=== PATIENT | female | born 1955 | race Caucasian/White ===

== ENCOUNTER → 2017-10-26 | Outpatient (CLI) | payer OTHER ==
[~2017-10-26] MED LIST: ACET325 PO; ALBU2.5V5; ALBU90OI6 INH; ALBU90OI61 INH; AMIT25 PO; AMIT50 PO; AMLO5 PO; ARIP10 PO; ASPI81CH PO; ATOR10 PO; ATOR20 PO; ATOR40TA PO; ATOR80 PO; Aspirin EC81 MG PO; BENADRYL25 MG PO; Bactrim Ds Tab1 EACH PO; CEPH500 PO; CILO50 PO; CLOB.05TC TP; CLON.5 PO; CLOP75 PO; Cipro500 MG PO; DELTASONE20 MG PO; DULO30 PO; Desyrel50 MG PO; FLUSAL2505 IH; FLUT1DIS2; Flagyl500 MG PO; GABA100 PO; GABA300 PO; HYDCHL25 PO; HYDHOMSY; IBUP600 PO; IBUPROFEN PO; LEVO750 PO; LIDO700A20 TOP; LORA.5 PO; Lisinopril2.5 MG PO; Lovastatin20 MG; MECL12.5 PO; METF500 PO; METO25ER PO; MOMENI; MULTIVITAMIN PO; NEBI5 PO; NITR.4SL SL; OMEP40CA12 PO; OXYACE5T PO; OXYC5 PO; PANT20 PO; POLTRIOPSO; POTA10T PO; POTCHL10ER PO; PRED20 PO; Percocet 10-321 EACH PO; RXHYDACE PO; SIMV80 PO; SPIR25 PO; TIOT18 IH; TIOT18 INH; TRAZ100; TRAZ50 PO; VENL150ER; VENL75ER PO; Ventolin5 MG/1 ML INH; [UNRECOGNIZED DRUG - OTHER]
[2017-10-26 19:48] LABS: Microalb/Creat Ratio UR, Rand Unable to Calculate mg/g (0.000-30.000); Microalbumin, Random Urine <5.000 mg/L (0.000-20.000)
== END ==
LOC: LAB 16:45
PROVIDERS: Registered Nurse
DX: E11.40 Type 2 diabetes mellitus with diabetic neuropathy, unspecified (principal)
CPT/HCPCS: 82043; 82570

== ENCOUNTER 2017-11-03 17:55 | Inpatient (IN) | payer OTHER ==
[~2017-11-03] VITALS: Ht 157.5 cm; Wt 69.0 kg
[~2017-11-03 17:55] MED LIST changes: -ALBU2.5V5; -Aspirin EC81 MG PO; -BENADRYL25 MG PO; -Bactrim Ds Tab1 EACH PO; -CLON.5 PO; -DELTASONE20 MG PO; -Desyrel50 MG PO; -FLUT1DIS2; -GABA100 PO; -IBUPROFEN PO; -LIDO700A20 TOP; -Lovastatin20 MG; -MULTIVITAMIN PO; -NEBI5 PO; -POLTRIOPSO; -TRAZ100; -VENL150ER
[2017-11-03] MEDS ORDERED: ALBU2.5V5 (18:18)
[2017-11-03] MEDS ORDERED: FLUT1DIS2 (18:18)
[2017-11-03] MEDS ORDERED: CLON.5 PO (18:19)
[2017-11-03] MEDS ORDERED: VENL150ER (18:19)
[2017-11-03] MEDS ORDERED: TRAZ100 (18:19)
[2017-11-03] MEDS ORDERED: POLTRIOPSO (18:19)
[2017-11-03] MEDS ORDERED: Lovastatin20 MG (18:19)
[2017-11-03 18:46] LABS: BASOPHILS ABSOLUTE AUTO 0.03 K/mm3 (0.00-0.23); BASOPHILS PERCENT AUTO 0 % (0-2); EOSINOPHILS ABSOLUTE AUTO 0.21 K/mm3 (0.00-0.68); EOSINOPHILS PERCENT AUTO 3 % (0-6); Hematocrit 41.1 % (33.0-51.0); Hemoglobin 14.2 g/dL (11.5-16.0); IMMATURE GRAN ABSOLUTE AUTO 0.05 K/mm3 (0.00-0.10); IMMATURE GRAN PERCENT AUTO 1 % (0-1); LYMPHOCYTES ABSOLUTE AUTO 1.99 K/mm3 (0.84-5.20); LYMPHOCYTES PERCENT AUTO 27 % (21-46); MONOCYTES ABSOLUTE AUTO 0.44 K/mm3 (0.16-1.47); MONOCYTES PERCENT AUTO 6 % (4-13); Mean Corpuscular HGB 31.8 pg (26.0-34.0); Mean Corpuscular HGB Conc 34.5 g/dL (31.5-36.5); Mean Corpuscular Volume 92 fL (80-100); Mean Platelet Volume 9.6 fL (9.1-12.4); NEUTROPHILS ABSOLUTE AUTO 4.63 K/mm3 (1.96-9.15); NEUTROPHILS PERCENT AUTO 63 % (41-73); Platelet Count 228 K/mm3 (150-400); RDW Coefficient Variation 12.3 % (11.7-14.2); RDW Standard Deviation 41.8 fL (35.1-46.3); Red Blood Cell Count 4.46 M/mm3 (3.80-5.20); White Blood Cell Count 7.35 K/mm3 (4.00-11.30)
[2017-11-03 18:59] LABS: Alanine Aminotransfer (ALT/SGP 18 U/L (12-78); Albumin, Blood 3.4 g/dL (3.4-5.0); Alk Phos 88 U/L (50-136); Anion Gap 11 mmol/L (6-16); Aspartate Aminotrans (AST/SGOT 18 U/L (12-37); Bilirubin, Total 0.2 mg/dL (0.1-1.0); Blood Urea Nitrogen 7 mg/dL (8-24); Bun/Creatinine Ratio 12.1 (12.0-20.0); CO2, Blood 23 mmol/L (21-32); Calcium, Blood 8.3 mg/dL (8.5-10.1); Chloride, Blood 103 mmol/L (98-108); Creatinine, Blood 0.58 mg/dL (0.40-1.00); Globulin, Blood 3.4 g/dL (2.2-4.0); Glomerular Filtration Rate >60 (60-); Glucose, Blood 90 mg/dL (70-99); Potassium, Blood 3.4 mmol/L (3.5-5.5); Sodium, Blood 137 mmol/L (136-145); Total Protein, Blood 6.8 g/dL (6.4-8.2); Troponin I 0.045 ng/mL (0.000-0.040)
[2017-11-03 20:36] LABS: International Normalized Ratio 0.95; Prothrombin Time Results 9.9 Sec (9.7-11.5)
[2017-11-04] MEDS ORDERED: MULTIVITAMIN PO (01:17)
[2017-11-04] MEDS ORDERED: Aspirin EC81 MG PO (01:20)
[2017-11-04] MEDS ORDERED: BENADRYL25 MG PO (01:23)
[2017-11-04] MEDS ORDERED: IBUPROFEN PO (01:24)
[2017-11-04] MEDS ORDERED: VENL75ER PO (01:28)
[2017-11-04 02:26] LABS: BASOPHILS ABSOLUTE AUTO 0.03 K/mm3 (0.00-0.23); BASOPHILS PERCENT AUTO 0 % (0-2); EOSINOPHILS ABSOLUTE AUTO 0.25 K/mm3 (0.00-0.68); EOSINOPHILS PERCENT AUTO 4 % (0-6); Hematocrit 43.1 % (33.0-51.0); Hemoglobin 14.8 g/dL (11.5-16.0); IMMATURE GRAN ABSOLUTE AUTO 0.05 K/mm3 (0.00-0.10); IMMATURE GRAN PERCENT AUTO 1 % (0-1); LYMPHOCYTES ABSOLUTE AUTO 2.87 K/mm3 (0.84-5.20); LYMPHOCYTES PERCENT AUTO 41 % (21-46); MONOCYTES ABSOLUTE AUTO 0.36 K/mm3 (0.16-1.47); MONOCYTES PERCENT AUTO 5 % (4-13); Mean Corpuscular HGB 31.8 pg (26.0-34.0); Mean Corpuscular HGB Conc 34.3 g/dL (31.5-36.5); Mean Corpuscular Volume 93 fL (80-100); Mean Platelet Volume 9.8 fL (9.1-12.4); NEUTROPHILS ABSOLUTE AUTO 3.39 K/mm3 (1.96-9.15); NEUTROPHILS PERCENT AUTO 49 % (41-73); Platelet Count 236 K/mm3 (150-400); RDW Coefficient Variation 12.6 % (11.7-14.2); RDW Standard Deviation 42.8 fL (35.1-46.3); Red Blood Cell Count 4.65 M/mm3 (3.80-5.20); White Blood Cell Count 6.95 K/mm3 (4.00-11.30)
[2017-11-04 02:30] LABS: Anion Gap 6 mmol/L (6-16); Blood Urea Nitrogen 7 mg/dL (8-24); Bun/Creatinine Ratio 12.3 (12.0-20.0); CHOL/HDL RATIO 4.4; CO2, Blood 27 mmol/L (21-32); Calcium, Blood 8.2 mg/dL (8.5-10.1); Chloride, Blood 106 mmol/L (98-108); Cholesterol 267 mg/dL (50-200); Creatinine, Blood 0.57 mg/dL (0.40-1.00); Glomerular Filtration Rate >60 (60-); Glucose, Blood 82 mg/dL (70-99); HDL Cholesterol 61 mg/dL (>39); LDL/HDL RATIO 2.7; Low Density Lipoprotein Chol 162 mg/dL (0-110); Potassium, Blood 4.4 mmol/L (3.5-5.5); Sodium, Blood 139 mmol/L (136-145); Triglycerides 221 mg/dL (30-160); Very Low Density Lipoprot Chol 44 mg/dL (6-32)
[2017-11-07 04:43] LABS: BASOPHILS ABSOLUTE AUTO 0.02 K/mm3 (0.00-0.23); BASOPHILS PERCENT AUTO 0 % (0-2); EOSINOPHILS PERCENT AUTO 0 % (0-6); Hematocrit 44.9 % (33.0-51.0); IMMATURE GRAN ABSOLUTE AUTO 0.21 K/mm3 (0.00-0.10); IMMATURE GRAN PERCENT AUTO 2 % (0-1); LYMPHOCYTES ABSOLUTE AUTO 0.75 K/mm3 (0.84-5.20); LYMPHOCYTES PERCENT AUTO 6 % (21-46); MONOCYTES ABSOLUTE AUTO 0.58 K/mm3 (0.16-1.47); MONOCYTES PERCENT AUTO 5 % (4-13); Mean Corpuscular HGB 31.3 pg (26.0-34.0); Mean Corpuscular HGB Conc 33.4 g/dL (31.5-36.5); Mean Corpuscular Volume 94 fL (80-100); Mean Platelet Volume 9.9 fL (9.1-12.4); NEUTROPHILS ABSOLUTE AUTO 10.61 K/mm3 (1.96-9.15); NEUTROPHILS PERCENT AUTO 87 % (41-73); Platelet Count 201 K/mm3 (150-400); RDW Coefficient Variation 12.7 % (11.7-14.2); RDW Standard Deviation 43.9 fL (35.1-46.3); Red Blood Cell Count 4.79 M/mm3 (3.80-5.20); White Blood Cell Count 12.17 K/mm3 (4.00-11.30)
[2017-11-07 05:02] LABS: Anion Gap 6 mmol/L (6-16); Blood Urea Nitrogen 22 mg/dL (8-24); Bun/Creatinine Ratio 31.6 (12.0-20.0); CO2, Blood 28 mmol/L (21-32); Calcium, Blood 8.9 mg/dL (8.5-10.1); Chloride, Blood 102 mmol/L (98-108); Glomerular Filtration Rate >60 (60-); Glucose, Blood 143 mg/dL (70-99); Potassium, Blood 4.6 mmol/L (3.5-5.5); Sodium, Blood 136 mmol/L (136-145)
[2017-11-09 04:17] LABS: BASOPHILS ABSOLUTE AUTO 0.03 K/mm3 (0.00-0.23); BASOPHILS PERCENT AUTO 0 % (0-2); EOSINOPHILS PERCENT AUTO 1 % (0-6); Hematocrit 46.2 % (33.0-51.0); Hemoglobin 15.3 g/dL (11.5-16.0); IMMATURE GRAN ABSOLUTE AUTO 0.27 K/mm3 (0.00-0.10); IMMATURE GRAN PERCENT AUTO 3 % (0-1); LYMPHOCYTES PERCENT AUTO 25 % (21-46); MONOCYTES ABSOLUTE AUTO 0.79 K/mm3 (0.16-1.47); MONOCYTES PERCENT AUTO 9 % (4-13); Mean Corpuscular HGB 31.2 pg (26.0-34.0); Mean Corpuscular HGB Conc 33.1 g/dL (31.5-36.5); Mean Corpuscular Volume 94 fL (80-100); Mean Platelet Volume 9.8 fL (9.1-12.4); NEUTROPHILS ABSOLUTE AUTO 5.78 K/mm3 (1.96-9.15); NEUTROPHILS PERCENT AUTO 62 % (41-73); Platelet Count 171 K/mm3 (150-400); RDW Coefficient Variation 12.9 % (11.7-14.2); RDW Standard Deviation 44.2 fL (35.1-46.3); White Blood Cell Count 9.27 K/mm3 (4.00-11.30)
[2017-11-09 04:35] LABS: Anion Gap 6 mmol/L (6-16); Blood Urea Nitrogen 25 mg/dL (8-24); Bun/Creatinine Ratio 39.2 (12.0-20.0); CO2, Blood 28 mmol/L (21-32); Calcium, Blood 8.8 mg/dL (8.5-10.1); Chloride, Blood 104 mmol/L (98-108); Creatinine, Blood 0.64 mg/dL (0.40-1.00); Glomerular Filtration Rate >60 (60-); Glucose, Blood 100 mg/dL (70-99); Potassium, Blood 4.2 mmol/L (3.5-5.5); Sodium, Blood 138 mmol/L (136-145)
[2017-11-09] MEDS ORDERED: NEBI5 PO (11:50)
[2017-11-09] MEDS ORDERED: Desyrel50 MG PO (11:54)
[2017-11-09] MEDS ORDERED: ACET325 PO (11:55)
[2017-11-09] MEDS ORDERED: CLOP75 PO (11:56)
[2017-11-09] MEDS ORDERED: GABA100 PO (11:56)
[2017-11-09] MEDS ORDERED: LIDO700A20 TOP (11:57)
[2017-11-09] MEDS ORDERED: DELTASONE20 MG PO (11:59)
[2017-11-09] MEDS ORDERED: Percocet 10-321 EACH PO (12:00)
[2018-06-06] MEDS ORDERED: Bactrim Ds Tab1 EACH PO (10:12)
[2018-06-06] MEDS ORDERED: CEPH500 PO (10:12)
== END 2017-11-09 13:18 | disposition home or self-care (01) | DRG 311 ==
LOC: ER 17:55 → PCU 17:56 → ER 17:56 → PCU 17:56
PROVIDERS: Emergency Medicine; Family Medicine; Internal Medicine
DX: I24.9 Acute ischemic heart disease, unspecified (principal); I95.9 Hypotension, unspecified; F10.230 Alcohol dependence with withdrawal, uncomplicated; E78.5 Hyperlipidemia, unspecified; I25.10 Atherosclerotic heart disease of native coronary artery without angina pectoris; I10 Essential (primary) hypertension; J44.9 Chronic obstructive pulmonary disease, unspecified; I73.9 Peripheral vascular disease, unspecified; G89.4 Chronic pain syndrome; F17.210 Nicotine dependence, cigarettes, uncomplicated; F41.8 Other specified anxiety disorders; Z95.5 Presence of coronary angioplasty implant and graft; J98.01 Acute bronchospasm
CPT/HCPCS: 36415; 71046; 71260; 78452; 80048; 80053; 80061; 84484; 85025; 85379; 85610; 85730; 93005; 93010; 93306; 93971; 94640; 94760; 96374; 96375; 99285; A9500; C9113; J0280; J1170; J1250; J1644; J1885; J2060; J2270; J2405; J2785; J2930; J7040; J7060; Q9967

== ENCOUNTER 2017-11-10 00:56 | Emergency (ER) | payer OTHER ==
[~2017-11-10] VITALS: Ht 165.1 cm; Wt 68.0 kg
[~2017-11-10 00:56] MED LIST changes: +ALBU2.5V5; +Aspirin EC81 MG PO; +BENADRYL25 MG PO; +CLON.5 PO; +DELTASONE20 MG PO; +Desyrel50 MG PO; +FLUT1DIS2; +GABA100 PO; +IBUPROFEN PO; +LIDO700A20 TOP; +Lovastatin20 MG; +MULTIVITAMIN PO; +NEBI5 PO; +POLTRIOPSO; +TRAZ100; +VENL150ER
[2017-11-10 01:26] LABS: BASOPHILS ABSOLUTE AUTO 0.04 K/mm3 (0.00-0.23); BASOPHILS PERCENT AUTO 0 % (0-2); EOSINOPHILS ABSOLUTE AUTO 0.01 K/mm3 (0.00-0.68); EOSINOPHILS PERCENT AUTO 0 % (0-6); Hematocrit 41.8 % (33.0-51.0); Hemoglobin 14.3 g/dL (11.5-16.0); IMMATURE GRAN ABSOLUTE AUTO 0.49 K/mm3 (0.00-0.10); IMMATURE GRAN PERCENT AUTO 5 % (0-1); LYMPHOCYTES ABSOLUTE AUTO 0.78 K/mm3 (0.84-5.20); LYMPHOCYTES PERCENT AUTO 8 % (21-46); MONOCYTES ABSOLUTE AUTO 0.66 K/mm3 (0.16-1.47); MONOCYTES PERCENT AUTO 6 % (4-13); Mean Corpuscular HGB 32.1 pg (26.0-34.0); Mean Corpuscular HGB Conc 34.2 g/dL (31.5-36.5); Mean Corpuscular Volume 94 fL (80-100); Mean Platelet Volume 9.9 fL (9.1-12.4); NEUTROPHILS ABSOLUTE AUTO 8.41 K/mm3 (1.96-9.15); NEUTROPHILS PERCENT AUTO 81 % (41-73); Platelet Count 201 K/mm3 (150-400); RDW Coefficient Variation 12.9 % (11.7-14.2); RDW Standard Deviation 44.5 fL (35.1-46.3); Red Blood Cell Count 4.45 M/mm3 (3.80-5.20); White Blood Cell Count 10.39 K/mm3 (4.00-11.30)
[2017-11-10 01:42] LABS: Alanine Aminotransfer (ALT/SGP 75 U/L (12-78); Albumin, Blood 3.3 g/dL (3.4-5.0); Alk Phos 95 U/L (50-136); Anion Gap 12 mmol/L (6-16); Aspartate Aminotrans (AST/SGOT 29 U/L (12-37); Bilirubin, Total 0.2 mg/dL (0.1-1.0); Blood Urea Nitrogen 20 mg/dL (8-24); Bun/Creatinine Ratio 35.2 (12.0-20.0); CO2, Blood 22 mmol/L (21-32); Calcium, Blood 8.6 mg/dL (8.5-10.1); Chloride, Blood 103 mmol/L (98-108); Creatinine, Blood 0.57 mg/dL (0.40-1.00); Globulin, Blood 3.4 g/dL (2.2-4.0); Glomerular Filtration Rate >60 (60-); Glucose, Blood 223 mg/dL (70-99); Potassium, Blood 4.1 mmol/L (3.5-5.5); Sodium, Blood 137 mmol/L (136-145); Total Protein, Blood 6.7 g/dL (6.4-8.2); Troponin I <0.015 ng/mL (0.000-0.040)
[2018-06-06] MEDS ORDERED: CEPH500 PO (10:12)
[2018-06-06] MEDS ORDERED: Bactrim Ds Tab1 EACH PO (10:12)
== END 2017-11-10 02:52 | disposition home or self-care (01) ==
LOC: ER 00:56
PROVIDERS: Emergency Medicine
DX: R07.9 Chest pain, unspecified (principal); I25.2 Old myocardial infarction; J44.9 Chronic obstructive pulmonary disease, unspecified; E78.00 Pure hypercholesterolemia, unspecified; F17.210 Nicotine dependence, cigarettes, uncomplicated; Z88.8 Allergy status to other drugs, medicaments and biological substances; Z79.899 Other long term (current) drug therapy; Z79.82 Long term (current) use of aspirin; Z79.52 Long term (current) use of systemic steroids
CPT/HCPCS: 36415; 71046; 80053; 83880; 84484; 85025; 93005; 93010; 99283

== ENCOUNTER 2018-01-19 08:05 | Day surgery (SDC) | payer OTHER | END 2018-01-19 10:30 | disposition home or self-care (01) | LOC: ORSCMMR 08:05 → MHTC 08:05 → ORD 08:30 → CT 09:00 → ORD 10:30 → ORSCMMR 10:30 | DX: R07.9 Chest pain, unspecified (principal); I25.10 Atherosclerotic heart disease of native coronary artery without angina pectoris | CPT/HCPCS: 75574; Q9967 ==

== ENCOUNTER → 2019-05-15 | Outpatient (CLI) | payer OTHER ==
[~2019-05-15] MED LIST changes: +Bactrim Ds Tab1 EACH PO
[2019-05-15 18:06] LABS: BASOPHILS ABSOLUTE AUTO 0.05 K/mm3 (0.00-0.23); BASOPHILS PERCENT AUTO 1 % (0-2); EOSINOPHILS ABSOLUTE AUTO 0.08 K/mm3 (0.00-0.68); EOSINOPHILS PERCENT AUTO 1 % (0-6); Hematocrit 49.5 % (33.0-51.0); Hemoglobin 16.2 g/dL (11.5-16.0); IMMATURE GRAN ABSOLUTE AUTO 0.02 K/mm3 (0.00-0.10); IMMATURE GRAN PERCENT AUTO 0 % (0-1); LYMPHOCYTES ABSOLUTE AUTO 1.27 K/mm3 (0.84-5.20); LYMPHOCYTES PERCENT AUTO 21 % (21-46); MONOCYTES ABSOLUTE AUTO 0.51 K/mm3 (0.16-1.47); MONOCYTES PERCENT AUTO 9 % (4-13); Mean Corpuscular HGB 32.7 pg (26.0-34.0); Mean Corpuscular HGB Conc 32.7 g/dL (31.5-36.5); Mean Corpuscular Volume 100 fL (80-100); Mean Platelet Volume 11.2 fL (9.1-12.4); NEUTROPHILS ABSOLUTE AUTO 4.01 K/mm3 (1.96-9.15); NEUTROPHILS PERCENT AUTO 68 % (41-73); Platelet Count 155 K/mm3 (150-400); RDW Coefficient Variation 13.2 % (11.7-14.2); RDW Standard Deviation 48.7 fL (35.1-46.3); Red Blood Cell Count 4.95 M/mm3 (3.80-5.20); White Blood Cell Count 5.94 K/mm3 (4.00-11.30)
[2019-05-15 19:24] LABS: Alanine Aminotransfer (ALT/SGP 90 U/L (12-78); Albumin, Blood 4.1 g/dL (3.4-5.0); Albumin/Globulin Ratio 1.3 (0.8-1.8); Alk Phos 97 U/L (50-136); Anion Gap 3 mmol/L (6-16); Aspartate Aminotrans (AST/SGOT 79 U/L (12-37); Bilirubin, Total 0.3 mg/dL (0.1-1.0); Blood Urea Nitrogen 7 mg/dL (8-24); Bun/Creatinine Ratio 9.9 (12.0-20.0); CO2, Blood 31 mmol/L (21-32); Calcium, Blood 9.5 mg/dL (8.5-10.1); Chloride, Blood 101 mmol/L (98-108); Creatinine, Blood 0.71 mg/dL (0.40-1.00); Free Thyroxine 0.72 ng/dL (0.70-1.60); Globulin, Blood 3.2 g/dL (2.2-4.0); Glomerular Filtration Rate >60 (60-); Glucose, Blood 100 mg/dL (70-99); Potassium, Blood 4.5 mmol/L (3.5-5.5); Sodium, Blood 135 mmol/L (136-145); Total Protein, Blood 7.3 g/dL (6.4-8.2)
== END | disposition home or self-care (01) ==
LOC: LAB 12:30 → LAB SHORT 12:30
PROVIDERS: Nurse Practitioner Family
DX: E55.9 Vitamin D deficiency, unspecified (principal); R25.2 Cramp and spasm; R53.81 Other malaise
CPT/HCPCS: 80053; 82306; 84439; 84443; 85025

== ENCOUNTER → 2019-06-25 | Outpatient (CLI) | payer OTHER ==
[2019-06-25 20:07] LABS: BASOPHILS ABSOLUTE AUTO 0.06 K/mm3 (0.00-0.23); BASOPHILS PERCENT AUTO 1 % (0-2); EOSINOPHILS ABSOLUTE AUTO 0.06 K/mm3 (0.00-0.68); EOSINOPHILS PERCENT AUTO 1 % (0-6); Hematocrit 53.6 % (33.0-51.0); Hemoglobin 17.8 g/dL (11.5-16.0); IMMATURE GRAN ABSOLUTE AUTO 0.03 K/mm3 (0.00-0.10); IMMATURE GRAN PERCENT AUTO 1 % (0-1); LYMPHOCYTES ABSOLUTE AUTO 1.55 K/mm3 (0.84-5.20); LYMPHOCYTES PERCENT AUTO 27 % (21-46); MONOCYTES ABSOLUTE AUTO 0.44 K/mm3 (0.16-1.47); MONOCYTES PERCENT AUTO 8 % (4-13); Mean Corpuscular HGB 32.2 pg (26.0-34.0); Mean Corpuscular HGB Conc 33.2 g/dL (31.5-36.5); Mean Corpuscular Volume 97 fL (80-100); NEUTROPHILS ABSOLUTE AUTO 3.62 K/mm3 (1.96-9.15); NEUTROPHILS PERCENT AUTO 63 % (41-73); Platelet Count 232 K/mm3 (150-400); RDW Coefficient Variation 12.5 % (11.7-14.2); RDW Standard Deviation 45.1 fL (35.1-46.3); Red Blood Cell Count 5.53 M/mm3 (3.80-5.20); White Blood Cell Count 5.76 K/mm3 (4.00-11.30)
[2019-06-25 20:38] LABS: Magnesium, Blood 2.2 mg/dL (1.6-2.4)
[2019-06-25 20:44] LABS: Alanine Aminotransfer (ALT/SGP 64 U/L (12-78); Albumin, Blood 4.1 g/dL (3.4-5.0); Albumin/Globulin Ratio 1.1 (0.8-1.8); Alk Phos 103 U/L (50-136); Anion Gap 7 mmol/L (6-16); Aspartate Aminotrans (AST/SGOT 51 U/L (12-37); Bilirubin, Total 0.5 mg/dL (0.1-1.0); Blood Urea Nitrogen 7 mg/dL (8-24); Bun/Creatinine Ratio 9.1 (12.0-20.0); CO2, Blood 29 mmol/L (21-32); Calcium, Blood 9.6 mg/dL (8.5-10.1); Chloride, Blood 94 mmol/L (98-108); Creatinine, Blood 0.77 mg/dL (0.40-1.00); Globulin, Blood 3.7 g/dL (2.2-4.0); Glomerular Filtration Rate >60 (60-); Glucose, Blood 132 mg/dL (70-99); Potassium, Blood 3.9 mmol/L (3.5-5.5); Sodium, Blood 130 mmol/L (136-145); Total Protein, Blood 7.8 g/dL (6.4-8.2)
== END | disposition home or self-care (01) ==
LOC: LAB 18:37 → LAB SHORT 18:37 → LAB FUT 06-25 10:20 → EDSTATUS 06-25 10:20
PROVIDERS: Nurse Practitioner Family
DX: K21.9 Gastro-esophageal reflux disease without esophagitis (principal)
CPT/HCPCS: 80053; 83735; 85025

== ENCOUNTER → 2019-10-22 | Outpatient (CLI) | payer OTHER ==
[2019-10-22 17:50] LABS: BASOPHILS ABSOLUTE AUTO 0.06 K/mm3 (0.00-0.23); BASOPHILS PERCENT AUTO 1 % (0-2); EOSINOPHILS ABSOLUTE AUTO 0.04 K/mm3 (0.00-0.68); EOSINOPHILS PERCENT AUTO 1 % (0-6); Hematocrit 52.9 % (33.0-51.0); Hemoglobin 18.2 g/dL (11.5-16.0); IMMATURE GRAN ABSOLUTE AUTO 0.03 K/mm3 (0.00-0.10); IMMATURE GRAN PERCENT AUTO 0 % (0-1); LYMPHOCYTES ABSOLUTE AUTO 1.62 K/mm3 (0.84-5.20); LYMPHOCYTES PERCENT AUTO 22 % (21-46); MONOCYTES ABSOLUTE AUTO 0.49 K/mm3 (0.16-1.47); MONOCYTES PERCENT AUTO 7 % (4-13); Mean Corpuscular HGB 33.2 pg (26.0-34.0); Mean Corpuscular HGB Conc 34.4 g/dL (31.5-36.5); Mean Corpuscular Volume 96 fL (80-100); Mean Platelet Volume 11.4 fL (9.1-12.4); NEUTROPHILS ABSOLUTE AUTO 5.16 K/mm3 (1.96-9.15); NEUTROPHILS PERCENT AUTO 70 % (41-73); Platelet Count 184 K/mm3 (150-400); RDW Coefficient Variation 12.3 % (11.7-14.2); Red Blood Cell Count 5.49 M/mm3 (3.80-5.20)
[2019-10-22 18:22] LABS: Alanine Aminotransfer (ALT/SGP 62 U/L (12-78); Albumin/Globulin Ratio 1.1 (0.8-1.8); Alk Phos 89 U/L (50-136); Anion Gap 9 mmol/L (6-16); Aspartate Aminotrans (AST/SGOT 69 U/L (12-37); Bilirubin, Total 0.6 mg/dL (0.1-1.0); Blood Urea Nitrogen 4 mg/dL (8-24); Bun/Creatinine Ratio 7.6 (12.0-20.0); CHOL/HDL RATIO 2.1; CO2, Blood 26 mmol/L (21-32); Calcium, Blood 9.3 mg/dL (8.5-10.1); Chloride, Blood 93 mmol/L (98-108); Cholesterol 237 mg/dL (50-200); Creatinine, Blood 0.53 mg/dL (0.40-1.00); Globulin, Blood 3.5 g/dL (2.2-4.0); Glomerular Filtration Rate >60 (60-); Glucose, Blood 95 mg/dL (70-99); HDL Cholesterol 114 mg/dL (>39); LDL Direct Measurement 90 mg/dL (0-130); LDL/HDL RATIO 0.9; Low Density Lipoprotein Chol 104 mg/dL (0-110); Potassium, Blood 3.9 mmol/L (3.5-5.5); Sodium, Blood 128 mmol/L (136-145); Total Protein, Blood 7.5 g/dL (6.4-8.2); Triglycerides 95 mg/dL (30-160); Very Low Density Lipoprot Chol 19 mg/dL (6-32)
== END ==
LOC: LAB SHORT 16:41 → LAB 16:41
PROVIDERS: Nurse Practitioner Family
DX: E55.9 Vitamin D deficiency, unspecified (principal); E78.5 Hyperlipidemia, unspecified; I10 Essential (primary) hypertension; R25.2 Cramp and spasm
CPT/HCPCS: 80053; 80061; 82306; 83721; 83735; 85025

== ENCOUNTER 2020-06-04 11:40 | Emergency (ER) | payer OTHER ==
[~2020-06-04] VITALS: Ht 165.1 cm; Wt 64.4 kg
[2020-06-04 12:21] LABS: BASOPHILS ABSOLUTE AUTO 0.04 K/mm3 (0.00-0.23); BASOPHILS PERCENT AUTO 1 % (0-2); EOSINOPHILS ABSOLUTE AUTO 0.02 K/mm3 (0.00-0.68); EOSINOPHILS PERCENT AUTO 0 % (0-6); Hematocrit 52.5 % (33.0-51.0); Hemoglobin 17.8 g/dL (11.5-16.0); IMMATURE GRAN ABSOLUTE AUTO 0.03 K/mm3 (0.00-0.10); IMMATURE GRAN PERCENT AUTO 0 % (0-1); LYMPHOCYTES ABSOLUTE AUTO 1.32 K/mm3 (0.84-5.20); LYMPHOCYTES PERCENT AUTO 18 % (21-46); MONOCYTES ABSOLUTE AUTO 0.49 K/mm3 (0.16-1.47); MONOCYTES PERCENT AUTO 7 % (4-13); Mean Corpuscular HGB Conc 33.9 g/dL (31.5-36.5); Mean Corpuscular Volume 100 fL (80-100); Mean Platelet Volume 10.1 fL (9.1-12.4); NEUTROPHILS ABSOLUTE AUTO 5.34 K/mm3 (1.96-9.15); NEUTROPHILS PERCENT AUTO 74 % (41-73); Platelet Count 200 K/mm3 (150-400); RDW Coefficient Variation 12.9 % (11.7-14.2); RDW Standard Deviation 48.2 fL (35.1-46.3); Red Blood Cell Count 5.24 M/mm3 (3.80-5.20); White Blood Cell Count 7.24 K/mm3 (4.00-11.30)
[2020-06-04] MEDS ORDERED: REPATHA SU140 MG/1 M SQ (12:29)
[2020-06-04] MEDS ORDERED: ISOSORBIDE MONO30 MG PO (12:29)
[2020-06-04 12:44] LABS: Alanine Aminotransfer (ALT/SGP 29 U/L (12-78); Albumin, Blood 3.7 g/dL (3.4-5.0); Alk Phos 108 U/L (50-136); Anion Gap 7 mmol/L (6-16); Aspartate Aminotrans (AST/SGOT 34 U/L (12-37); Bilirubin, Total 0.5 mg/dL (0.1-1.0); Blood Urea Nitrogen 3 mg/dL (8-24); Bun/Creatinine Ratio 5.6 (12.0-20.0); CO2, Blood 30 mmol/L (21-32); Calcium, Blood 9.4 mg/dL (8.5-10.1); Chloride, Blood 98 mmol/L (98-108); Creatinine, Blood 0.53 mg/dL (0.40-1.00); Globulin, Blood 3.6 g/dL (2.2-4.0); Glomerular Filtration Rate >60 (60-); Glucose, Blood 122 mg/dL (70-99); Potassium, Blood 3.8 mmol/L (3.5-5.5); Sodium, Blood 135 mmol/L (136-145); Total Protein, Blood 7.3 g/dL (6.4-8.2); Troponin I <0.015 ng/mL (0.000-0.040)
[2020-06-04 15:10] LABS: PCO2 Arterial 34.8 mmHg (35-45); PO2 Arterial 82.2 mmHg (80-100)
[2020-06-04] MEDS ORDERED: Prednisone50 MG PO (19:12)
[2020-06-04] MEDS ORDERED: Zithromax250 MG PO (19:12)
[2020-06-04] MEDS ORDERED: ONDA4ODT MM (19:12)
[2020-06-04 19:16] LABS: Adenovirus Not Detected (NOT DETECT); Bordetella pertussis Not Detected (NOT DETECT); Chlamydophila pneumoniae Not Detected (NOT DETECT); Coronavirus 229E Not Detected (NOT DETECT); Coronavirus HKU1 Not Detected (NOT DETECT); Coronavirus NL63 Not Detected (NOT DETECT); Coronavirus OC43 Not Detected (NOT DETECT); Human Metapneumovirus Not Detected (NOT DETECT); Human Rhinovirus/Enterovirus Not Detected (NOT DETECT); Influenza A/2009-H1 Not Detected (NOT DETECT); Influenza A/H1 Not Detected (NOT DETECT); Influenza A/H3 Not Detected (NOT DETECT); Influenza B Not Detected (NOT DETECT); Mycoplasma pneumoniae Not Detected (NOT DETECT); Parainfluenza Virus 1 Not Detected (NOT DETECT); Parainfluenza Virus 2 Not Detected (NOT DETECT); Parainfluenza Virus 3 Not Detected (NOT DETECT); Parainfluenza Virus 4 Not Detected (NOT DETECT); Respiratory Syncytial Virus Not Detected (NOT DETECT); SARS-Cov-2 (COVID-19), BioFire Not Detected (NOT DETECT)
== END 2020-06-04 19:59 | disposition home or self-care (01) ==
LOC: ER 11:40
PROVIDERS: Emergency Medicine
DX: J44.1 Chronic obstructive pulmonary disease with (acute) exacerbation (principal); R53.1 Weakness; Z20.828 Contact with and (suspected) exposure to other viral communicable diseases; Z79.82 Long term (current) use of aspirin; Z79.899 Other long term (current) drug therapy; Z88.8 Allergy status to other drugs, medicaments and biological substances; R53.83 Other fatigue
CPT/HCPCS: 0202U; 36415; 36600; 70450; 71046; 71260; 80053; 82803; 83735; 83880; 84443; 84484; 85025; 85379; 93005; 93010; 94644; 96361; 96374-59; 96375-59; 99285-25; J2930; J7120; Q9967

== ENCOUNTER 2020-11-24 06:42 | Day surgery (SDC) | payer OTHER ==
[~2020-11-24] VITALS: Ht 165.1 cm; Wt 70.2 kg
[~2020-11-24 06:42] MED LIST changes: +ISOSORBIDE MONO30 MG PO; +ONDA4ODT MM; +Prednisone50 MG PO; +REPATHA SU140 MG/1 M SQ; +Zithromax250 MG PO
--- NOTE | 2020-11-24 07:30 | NUR ---
11/24/20 0730 Nicolasa Olivera 1 TRY RIGHT HAND BLEW
== END 2020-11-24 08:10 | disposition home or self-care (01) ==
LOC: ORSCSDS 06:42
PROVIDERS: Surgery
PROC: 3E0H8KZ Introduction of Other Diagnostic Substance into Lower GI, Via Natural or Artificial Opening Endoscopic (ICD-10-PCS; principal; 2020-11-24 08:00)
PROC: 0DBL8ZX Excision of Transverse Colon, Via Natural or Artificial Opening Endoscopic, Diagnostic (ICD-10-PCS; principal; 2020-11-24 08:00)
DX: Z12.11 Encounter for screening for malignant neoplasm of colon (principal); Z86.010 Personal history of colon polyps; D12.3 Benign neoplasm of transverse colon; I25.10 Atherosclerotic heart disease of native coronary artery without angina pectoris; J44.9 Chronic obstructive pulmonary disease, unspecified; K21.9 Gastro-esophageal reflux disease without esophagitis; E78.5 Hyperlipidemia, unspecified; I10 Essential (primary) hypertension; J45.909 Unspecified asthma, uncomplicated; Z79.899 Other long term (current) drug therapy; Z79.82 Long term (current) use of aspirin; F17.210 Nicotine dependence, cigarettes, uncomplicated
CPT/HCPCS: 82947; 88305; J2405; J2704; J7120

== ENCOUNTER → 2021-02-02 | Outpatient (CLI) | payer OTHER | LOC: LAB SHORT 14:53 → PLD 14:53 | DX: L97.509 Non-pressure chronic ulcer of other part of unspecified foot with unspecified severity (principal) | CPT/HCPCS: 87070; 87075; 87205 ==

== ENCOUNTER 2021-05-04 06:25 | Day surgery (SDC) | payer OTHER ==
[~2021-05-04] VITALS: Ht 165.1 cm; Wt 70.0 kg
[2021-05-04] MEDS ORDERED: REPATHA SU140 MG/1 M SQ (07:16)
[2021-05-04] MEDS ORDERED: KRILL OIL500 MG PO (07:16)
[2021-05-04] MEDS ORDERED: ZYRTEC10 M1 PO (07:17)
[2021-05-04] MEDS ORDERED: Voltaren100 GM TOP (07:17)
== END 2021-05-04 14:00 | disposition home or self-care (01) ==
LOC: MHTC 06:25
DX: I70.213 Atherosclerosis of native arteries of extremities with intermittent claudication, bilateral legs (principal); I25.10 Atherosclerotic heart disease of native coronary artery without angina pectoris; I10 Essential (primary) hypertension; J44.9 Chronic obstructive pulmonary disease, unspecified; F17.210 Nicotine dependence, cigarettes, uncomplicated; I25.2 Old myocardial infarction; K21.9 Gastro-esophageal reflux disease without esophagitis; F32.9 Major depressive disorder, single episode, unspecified; G60.0 Hereditary motor and sensory neuropathy; Z95.5 Presence of coronary angioplasty implant and graft; Z88.8 Allergy status to other drugs, medicaments and biological substances
CPT/HCPCS: 76937; 99152; 99153; C1714; C1725; C1760; C1769; C1874; C1876; C1884; C1887; C1894; C2623; J1644; J2250; J3010; J7030; J7050; Q9967

== ENCOUNTER 2021-06-09 08:29 | Day surgery (SDC) | payer OTHER ==
[~2021-06-09] VITALS: Ht 165.1 cm; Wt 70.0 kg
[~2021-06-09 08:29] MED LIST changes: +KRILL OIL500 MG PO; +Voltaren100 GM TOP; +ZYRTEC10 M1 PO
[2021-06-09 20:18] LABS: Source, Urine Catheter
[2021-06-09 20:20] LABS: Bilirubin, Urine Neg (Neg); Blood, Urine Neg (Neg); Glucose Qualitative, Urine Neg (Neg); Ketones, Urine Neg (Neg); Leukocyte Esterase, Urine Neg (Neg); Nitrite, Urine Neg (Neg); Protein, Urine Neg (Neg); Urobilinogen, Urine NORM (Normal)
--- NOTE | 2021-06-09 20:21 | NUR ---
ASSUMED CARE OF PT AT 1915. REPORT RECEIVED. PT PRESENTS IN BED. ALERT AND ORIENTED. PLEASANT AND COOPERATIVE WITH CARE AND ASSESSMENT. PT HAS ATTEMPTED TO VOID AND WAS ONLY ABLE TO VOID APPROX 50 ML. PT STATES THAT SHE FEELS VERY UNCOMFORTABLE AND FEELING SHE NEEDS TO URINATE AND IS UNABLE. AFTER BLADDER SCAN REVEALS > 700 ML URINE PLACED 14 [place] CARRILLO CATHETER. URINE SAMPLE SENT TO LAB FOR URINALYSIS. PT STATES THAT SHE FEELS MUCH MORE RELIEF AFTER CATHETER. LEFT GROIN SITE CHECK WITH ARTERIAL SHEATH IN PLACE. NO HEMATOMA OR OOZING NOTED. RIGHT PEDAL AND POST TIB DOPPLER REVEALS FAINT PULSES. RUDDISH COLORATION TO RIGHT FOOT. GOOD DISTAL CMS CHECKS TO LEFT DISTAL LOWER EXTREMITY. PT DOES HAVE VERY MILD DISORIENTATION AT TIMES. BELIEVES THAT SHE HAS SPOKEN TO THIS RN'S ABOUT CATHETER. REORIENTS QUICKLY. PT HAS NO COMPLAINTS OF LOWER EXTREMITY PAIN AT THIS TIME. WILL REIVEW CHART AND PLAN OF CARE FOR THIS PT.
[2021-06-09 20:40] LABS: Appearance, Urine Clear (Clear); Color, Urine Yellow (P-Yellow)
[2021-06-09 20:49] LABS: Hematocrit 51.4 % (33.0-51.0); Mean Corpuscular HGB 33.9 pg (26.0-34.0); Mean Corpuscular Volume 97 fL (80-100); Platelet Count 142 K/mm3 (150-400); RDW Coefficient Variation 12.6 % (11.7-14.2); RDW Standard Deviation 45.3 fL (35.1-46.3); Red Blood Cell Count 5.31 M/mm3 (3.80-5.20); White Blood Cell Count 12.54 K/mm3 (4.00-11.30)
--- NOTE | 2021-06-10 01:39 | NUR ---
CALL MADE TO DR HUNT SECONDARY TO FIBRINOGEN LEVEL 112. ORDER RECEIVED TO DECREASE TO 0.5 MG/HR. THIS DONE. PT MEDICATED WITH 1 MG DILAUDID FOR RIGHT LOWER EXTREMITY PAIN. PT FALLS ASLEEP AFTER DOSE. LEFT GROIN SITE WITHOUT HEMATOMA OR OOZING. WILL CONTINUE TO MONITOR PT.
--- NOTE | 2021-06-10 06:26 | NUR ---
PT HAS BEEN ABLE TO REST SOME THIS NIGHT. HAS HAD COMPLAINTS OF PAIN IN HER RIGHT LEG. DOES HAVE DOPPLER PULSES THAT ARE DIFFICULT TO FIND AND ARE FAINT. PT CONTINUES ON TPA AT 0.5 MG/HOUR. RATE WAS DECREASED EARLIER BY DR HUNT SECONDARY TO LOWER FIBRINIGEN LEVEL. NO HEMATOMA OR OOZING FROM LEFT GROIN LINE. WILL CONTINUE TO MONITOR PT, AND WILL REPORT OFF TO ONCOMING RN.
--- NOTE | 2021-06-10 07:25 | NUR ---
CARE OF PT ASSUMED AT 0700. BEDSIDE REPORT TAKEN. LEFT GROIN W SHEATH SOFT W/O HEMATOMA OR BLEEDING. R FOOT BRIGHT RED WITH PALE WHITE TOES, ESPECIALLY TO BACKSIDE AND TIP OF BIG TOE. RIGHT PT +DOPPLER, ABSENT R DP. CATHFLO INFUSING AT 0.5, HEP TO SIDE PORT AT 10. PT TAKEN TO [employer]PER[employer] DURING REPORT AT 0710.
--- NOTE | 2021-06-10 08:45 | NUR ---
PT RETURNED FROM [employer] AT 0835. BEDSIDE REPORT TAKEN. PT SLEEPING AROUSES TO VOICE. R GROIN W ANGIOSEAL, SOFT W/O HEMATOMA OR BLEEDING. R FOOT REMAINS BRIGHT RED W EXCEPTION OF TOES WHICH ARE STILL WHITE. STRONG RIGHT DP/PT PULSES W DOPPLER. PT TO BE DISCHARGED HOME TODAY.
--- NOTE | 2021-06-10 09:19 | NUR ---
PT WOKE UP MOANING, RESTLESS, C/O PAIN 10/10 TO HIPS, SPINE, AND RIGHT LEG. DILAUDID 1MG IVP GIVEN FOR PAIN. PT HYPERTENSIVE AND TACHYCARDIC, PO MEDS GIVEN W SIPS OF WATER.
[2021-06-10] MEDS ORDERED: XARELTO20 MG PO (09:41)
--- NOTE | 2021-06-10 10:13 | NUR ---
PT NOW HAS PALP 2+ PULSE TO RIGHT DP.
--- NOTE | 2021-06-10 15:12 | NUR ---
VERBAL AND WRITTEN DC INFO GIVEN TO PT AND S/O W CLEAR UNDERSTANDING. FEM ART ACCESS DISCHARGE INFO GIVEN. RX CALLED INTO [facility] PER PT REQUEST. PT ABLE TO DRINK W/O PRIOR TO DISCHARGE. CARRILLO CATH TAKEN OUT W/O ISSUE. LEFT GROIN SOFT W/O HEMATOMA PRIOR TO DISCHARGE. DRSG C/D/I. R FOOT W PALP PULSE TO PT/DP. FOOT BRIGHT RED W GOOD CAP REFILL. PT DC'D HOME IN STABLE CONDITION IN CARE OF S/O. DR GASPAR OFFICE CALLED AND LEFT MESSAGE TO SCHEDULE F/U APPT.
== END 2021-06-10 14:10 | disposition home or self-care (01) ==
LOC: MHTC 08:29 → ICUE 12:28 → MHTC 06-10 14:10
PROVIDERS: Radiology Diagnostic Radiology
PROC: 3E03317 Introduction of Other Thrombolytic into Peripheral Vein, Percutaneous Approach (ICD-10-PCS; principal; 2021-06-09)
PROC: 04CL3ZZ Extirpation of Matter from Left Femoral Artery, Percutaneous Approach (ICD-10-PCS; principal; 2021-06-09)
PROC: 047K3ZZ Dilation of Right Femoral Artery, Percutaneous Approach (ICD-10-PCS; principal; 2021-06-09)
DX: I70.213 Atherosclerosis of native arteries of extremities with intermittent claudication, bilateral legs (principal); I25.10 Atherosclerotic heart disease of native coronary artery without angina pectoris; I10 Essential (primary) hypertension; E78.5 Hyperlipidemia, unspecified; J45.909 Unspecified asthma, uncomplicated; K21.9 Gastro-esophageal reflux disease without esophagitis; G60.0 Hereditary motor and sensory neuropathy; F17.210 Nicotine dependence, cigarettes, uncomplicated; I25.2 Old myocardial infarction; Z95.5 Presence of coronary angioplasty implant and graft; Z88.8 Allergy status to other drugs, medicaments and biological substances; Z79.899 Other long term (current) drug therapy; Z79.82 Long term (current) use of aspirin; Z79.1 Long term (current) use of non-steroidal anti-inflammatories (NSAID)
CPT/HCPCS: 36415; 37252; 51702; 76937; 81003; 85018; 85027; 85384; 94640; 94664; 94760; 99152; 99153; A9270; C1714; C1725; C1753; C1760; C1769; C1884; C1887; C1894; C2623; C9113; J0360; J1170; J1644; J2250; J2997; J3010; J7030; J7040; J7050; Q9967

== ENCOUNTER → 2021-11-08 | Outpatient (CLI) | payer OTHER ==
[~2021-11-08] MED LIST changes: +XARELTO20 MG PO
[2021-11-08 18:47] LABS: Sodium, Urine, Random 18 mmol/L (20-110)
[2021-11-08 18:48] LABS: Osmolality, Urine 617 mos/kg (15-1400)
== END | disposition home or self-care (01) ==
LOC: LAB 15:38
PROVIDERS: Family Medicine
DX: I95.9 Hypotension, unspecified (principal)
CPT/HCPCS: 83935; 84300

== ENCOUNTER 2022-06-27 11:09 | Emergency (ER) | payer OTHER ==
[~2022-06-27] VITALS: Ht 165.1 cm; Wt 69.4 kg
[2022-06-27] MEDS ORDERED: HYDR1TAB94 PO (13:09)
== END 2022-06-27 14:14 | disposition home or self-care (01) ==
LOC: ER 11:09
DX: S52.572A Other intraarticular fracture of lower end of left radius, initial encounter for closed fracture (principal); I25.10 Atherosclerotic heart disease of native coronary artery without angina pectoris; I50.9 Heart failure, unspecified; J44.9 Chronic obstructive pulmonary disease, unspecified; F17.210 Nicotine dependence, cigarettes, uncomplicated; W10.9XXA Fall (on) (from) unspecified stairs and steps, initial encounter; Z79.84 Long term (current) use of oral hypoglycemic drugs; Z95.5 Presence of coronary angioplasty implant and graft; Z79.01 Long term (current) use of anticoagulants; Z79.82 Long term (current) use of aspirin; Z79.899 Other long term (current) drug therapy
CPT/HCPCS: 73090; 73110; A9270

== ENCOUNTER → 2023-03-02 | Outpatient (CLI) | payer OTHER ==
[~2023-03-02] MED LIST changes: +HYDR1TAB94 PO
== END | disposition home or self-care (01) ==
LOC: LAB 17:15 → LAB SHORT 17:15
DX: R30.0 Dysuria (principal)
CPT/HCPCS: 87077; 87086; 87186

== ENCOUNTER 2023-06-06 12:38 | Day surgery (SDC) | payer OTHER ==
[~2023-06-06] VITALS: Ht 165.1 cm; Wt 72.6 kg
[2023-06-06] MEDS ORDERED: NEBI10 PO (13:17)
[2023-06-06] MEDS ORDERED: SYMBICORT 160-4.6 GM INH (13:20)
[2023-06-06 14:27] VITALS: BP 106/92
== END 2023-06-06 14:56 | disposition home or self-care (01) ==
LOC: ORSCSDS 12:38
PROVIDERS: Ophthalmology
PROC: 08RJ3JZ Replacement of Right Lens with Synthetic Substitute, Percutaneous Approach (ICD-10-PCS; principal; 2023-06-06 14:00)
DX: H25.11 Age-related nuclear cataract, right eye (principal); H35.3220 Exudative age-related macular degeneration, left eye, stage unspecified; J45.909 Unspecified asthma, uncomplicated; I10 Essential (primary) hypertension; I25.10 Atherosclerotic heart disease of native coronary artery without angina pectoris; I25.2 Old myocardial infarction; J44.9 Chronic obstructive pulmonary disease, unspecified; F41.1 Generalized anxiety disorder; K21.9 Gastro-esophageal reflux disease without esophagitis; F10.21 Alcohol dependence, in remission; E78.5 Hyperlipidemia, unspecified; F32.9 Major depressive disorder, single episode, unspecified; F17.200 Nicotine dependence, unspecified, uncomplicated; Z79.899 Other long term (current) drug therapy
CPT/HCPCS: 82947; J2250; J3010; J3301; J7040; V2632

== ENCOUNTER 2023-06-13 12:12 | Day surgery (SDC) | payer OTHER ==
[~2023-06-13] VITALS: Ht 165.1 cm; Wt 73.1 kg
[~2023-06-13 12:12] MED LIST changes: +NEBI10 PO; +SYMBICORT 160-4.6 GM INH
[2023-06-13 15:55] VITALS: BP 100/70
--- NOTE | 2023-06-13 16:46 | NUR ---
06/13/23 1646 Wil Flowers IV REMOVED INTACT. SITE WNL.
== END 2023-06-13 14:55 | disposition home or self-care (01) ==
LOC: ORSCSDS 12:12
PROVIDERS: Ophthalmology
PROC: 08RK3JZ Replacement of Left Lens with Synthetic Substitute, Percutaneous Approach (ICD-10-PCS; principal; 2023-06-13 13:30)
DX: H25.12 Age-related nuclear cataract, left eye (principal); Z96.1 Presence of intraocular lens; J45.909 Unspecified asthma, uncomplicated; I25.10 Atherosclerotic heart disease of native coronary artery without angina pectoris; I25.2 Old myocardial infarction; J44.9 Chronic obstructive pulmonary disease, unspecified; F41.1 Generalized anxiety disorder; K21.9 Gastro-esophageal reflux disease without esophagitis; I10 Essential (primary) hypertension; E78.5 Hyperlipidemia, unspecified; F32.9 Major depressive disorder, single episode, unspecified; Z79.82 Long term (current) use of aspirin; Z79.899 Other long term (current) drug therapy; Z99.81 Dependence on supplemental oxygen; F17.200 Nicotine dependence, unspecified, uncomplicated
CPT/HCPCS: 82947; J2001; J2250; J3010; J3301; J7040; V2632

== ENCOUNTER 2024-03-13 03:22 | Day surgery (SDC) | payer OTHER | END 2024-03-14 22:45 | disposition home or self-care (01) | LOC: WOUND 03:22 | DX: T81.31XD Disruption of external operation (surgical) wound, not elsewhere classified, subsequent encounter (principal); I70.213 Atherosclerosis of native arteries of extremities with intermittent claudication, bilateral legs; M86.9 Osteomyelitis, unspecified; J44.9 Chronic obstructive pulmonary disease, unspecified; I10 Essential (primary) hypertension; G62.9 Polyneuropathy, unspecified; Z88.8 Allergy status to other drugs, medicaments and biological substances; Y83.8 Other surgical procedures as the cause of abnormal reaction of the patient, or of later complication, without mention of misadventure at the time of the procedure | CPT/HCPCS: 99406; G0463 ==

== ENCOUNTER → 2024-03-13 | Outpatient (CLI) | payer OTHER ==
[~2024-03-13] MED LIST changes: +AMOX500 PO; +Aspir 8181 MG PO; +ICAPS AREDS2 T1 EACH PO; +NICO21TP TOP; +NITR.4SL; +Plavix75 MG PO
[2024-03-15 08:28] LABS: C DIFFICILE DNA NEGATIVE (Negative)
== END ==
LOC: EDSTATUS 10:20 → LAB 17:23 → LAB SHORT 17:23
PROVIDERS: Family Medicine
DX: K52.9 Noninfective gastroenteritis and colitis, unspecified (principal)
CPT/HCPCS: 87493

== ENCOUNTER → 2024-03-17 | Outpatient (CLI) | payer OTHER ==
[2024-03-17 10:57] LABS: BASOPHILS ABSOLUTE AUTO 0.04 K/mm3 (0.00-0.23); BASOPHILS PERCENT AUTO 0 % (0-2); EOSINOPHILS ABSOLUTE AUTO 0.23 K/mm3 (0.00-0.68); EOSINOPHILS PERCENT AUTO 2 % (0-6); Hematocrit 43.2 % (33.0-51.0); IMMATURE GRAN ABSOLUTE AUTO 0.08 K/mm3 (0.00-0.10); IMMATURE GRAN PERCENT AUTO 1 % (0-1); LYMPHOCYTES ABSOLUTE AUTO 1.53 K/mm3 (0.84-5.20); LYMPHOCYTES PERCENT AUTO 15 % (21-46); MONOCYTES ABSOLUTE AUTO 0.88 K/mm3 (0.16-1.47); MONOCYTES PERCENT AUTO 9 % (4-13); Mean Corpuscular HGB 32.4 pg (26.0-34.0); Mean Corpuscular HGB Conc 34.7 g/dL (31.5-36.5); Mean Corpuscular Volume 93 fL (80-100); Mean Platelet Volume 9.9 fL (9.1-12.4); NEUTROPHILS ABSOLUTE AUTO 7.42 K/mm3 (1.96-9.15); NEUTROPHILS PERCENT AUTO 73 % (41-73); Platelet Count 277 K/mm3 (150-400); RDW Coefficient Variation 12.8 % (11.7-14.2); RDW Standard Deviation 43.5 fL (35.1-46.3); Red Blood Cell Count 4.63 M/mm3 (3.80-5.20); White Blood Cell Count 10.18 K/mm3 (4.00-11.30)
[2024-03-17 11:06] LABS: Albumin/Globulin Ratio 0.7 (0.8-1.8); Bilirubin, Total 0.3 mg/dL (0.1-1.0); Bun/Creatinine Ratio 5.7 (12.0-20.0); Calcium, Blood 8.9 mg/dL (8.5-10.1); Creatinine, Blood 0.87 mg/dL (0.40-1.00); Globulin, Blood 4.1 g/dL (2.2-4.0); Potassium, Blood 3.4 mmol/L (3.5-5.5); Total Protein, Blood 7.1 g/dL (6.4-8.2)
== END | disposition home or self-care (01) ==
LOC: LAB SHORT 10:52 → LAB 10:52
PROVIDERS: Family Medicine
DX: R10.84 Generalized abdominal pain (principal)
CPT/HCPCS: 80053; 85025

== ENCOUNTER → 2024-03-17 | Outpatient (CLI) | payer OTHER ==
[2024-03-17 13:35] LABS: Source, Urine Clean Catch
[2024-03-17 13:49] LABS: Appearance, Urine Turbid (Clear); Bilirubin, Urine Neg (Neg); Blood, Urine 2+ (Neg); Color, Urine Yellow (P-Yellow); Glucose Qualitative, Urine Neg (Normal); Ketones, Urine 1+ (Neg); Leukocyte Esterase, Urine 2+ (Neg); Nitrite, Urine Neg (Neg); Protein, Urine 1+ (Neg); Urobilinogen, Urine NORM (Normal)
[2024-03-17 13:50] LABS: Bacteria Many /hpf; Red Blood Cells, Urine 50-100 /hpf (0-2); Squamous Epithelial Cells Mod /hpf (Few); White Blood Cells, Urine TNTC /hpf (0-5)
== END | disposition home or self-care (01) ==
LOC: LAB 13:34 → LAB SHORT 13:34
PROVIDERS: Family Medicine
DX: R82.90 Unspecified abnormal findings in urine (principal)
CPT/HCPCS: 81001; 87077; 87086; 87186

== ENCOUNTER 2024-03-20 01:19 | Day surgery (SDC) | payer OTHER | END 2024-03-21 05:22 | disposition home or self-care (01) | LOC: WOUND 01:19 | DX: T81.31XA Disruption of external operation (surgical) wound, not elsewhere classified, initial encounter (principal); M86.9 Osteomyelitis, unspecified; I70.213 Atherosclerosis of native arteries of extremities with intermittent claudication, bilateral legs; G62.9 Polyneuropathy, unspecified; Z72.0 Tobacco use | CPT/HCPCS: G0463 ==

== ENCOUNTER 2024-05-16 02:46 | Day surgery (SDC) | payer OTHER | END 2024-05-16 23:10 | disposition home or self-care (01) | LOC: WOUND 02:46 | DX: T81.31XA Disruption of external operation (surgical) wound, not elsewhere classified, initial encounter (principal); M86.9 Osteomyelitis, unspecified; I70.213 Atherosclerosis of native arteries of extremities with intermittent claudication, bilateral legs; G62.9 Polyneuropathy, unspecified; Z72.0 Tobacco use | CPT/HCPCS: G0463 ==

== ENCOUNTER 2024-05-21 03:16 | Day surgery (SDC) | payer OTHER | END 2024-05-21 23:00 | disposition home or self-care (01) | LOC: WOUND 03:16 | DX: T81.31XD Disruption of external operation (surgical) wound, not elsewhere classified, subsequent encounter (principal); S91.101D Unspecified open wound of right great toe without damage to nail, subsequent encounter; M86.9 Osteomyelitis, unspecified; I70.213 Atherosclerosis of native arteries of extremities with intermittent claudication, bilateral legs; G62.9 Polyneuropathy, unspecified; Z72.0 Tobacco use; Y83.8 Other surgical procedures as the cause of abnormal reaction of the patient, or of later complication, without mention of misadventure at the time of the procedure; X58.XXXD Exposure to other specified factors, subsequent encounter | CPT/HCPCS: G0463 ==

== ENCOUNTER 2024-05-28 02:08 | Day surgery (SDC) | payer OTHER | END 2024-05-28 23:11 | disposition home or self-care (01) | LOC: WOUND 02:08 | DX: T81.31XA Disruption of external operation (surgical) wound, not elsewhere classified, initial encounter (principal); S91.101A Unspecified open wound of right great toe without damage to nail, initial encounter; X58.XXXA Exposure to other specified factors, initial encounter; M86.9 Osteomyelitis, unspecified; I70.213 Atherosclerosis of native arteries of extremities with intermittent claudication, bilateral legs; G62.9 Polyneuropathy, unspecified; Z72.0 Tobacco use | CPT/HCPCS: G0463 ==

== ENCOUNTER 2024-06-04 03:23 | Day surgery (SDC) | payer OTHER | END 2024-06-04 23:00 | LOC: WOUND 03:23 | DX: T81.31XD Disruption of external operation (surgical) wound, not elsewhere classified, subsequent encounter (principal); Y83.8 Other surgical procedures as the cause of abnormal reaction of the patient, or of later complication, without mention of misadventure at the time of the procedure; I70.213 Atherosclerosis of native arteries of extremities with intermittent claudication, bilateral legs; M86.9 Osteomyelitis, unspecified; G62.9 Polyneuropathy, unspecified; Z72.0 Tobacco use; Z89.411 Acquired absence of right great toe | CPT/HCPCS: G0463 ==